=== PATIENT | male | born 2000 | race Caucasian/White ===

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

== ENCOUNTER 2019-05-15 10:52 | Emergency (ER) | payer BC, OTHER ==
[2019-05-15 11:07] VITALS: BP 149/92
--- NOTE | 2019-05-15 11:39 | UC ---
Skin Complaint HPI - HPI Summary HPI Summary: skin redness at the tattoo site x 2 days had a tattoo on his left forearm last week , now the area is red, swollen , tender, no drainage no fever, no chills - History of Current Complaint Chief Complaint: UCSkin Time Seen by Provider: 05/15/19 11:19 Stated Complaint: SKIN CONCERN Hx Obtained From: Patient Onset/Duration: Gradual Onset, Lasting Days - 2, Still Present Timing: Constant Onset Severity: Moderate Current Severity: Moderate Pain Intensity: 0 Pain Scale Used: 0-10 Numeric Location: Discrete - left forearm Character: Swelling, Pain, Redness, Raised, Painful Aggravating Factor(s): Nothing Alleviating Factor(s): Nothing Associated Signs & Symptoms: Positive: Tenderness. Negative: Nausea, Vomiting, Fever, Chills, Red Streaks - Allergy/Home Medications Allergies/Adverse Reactions: Allergies Allergy/AdvReac Type Severity Reaction Status Date / Time Penicillins Allergy Hives Verified 05/15/19 11:03 [place] Allergy Anaphylatic Verified 05/15/19 11:03 Shock PMH/Surg Hx/FS Hx/Imm Hx Previously Healthy: Yes - Surgical History Surgical History: Yes Surgery Procedure, Year, and Place: tongue-tie - Family History Known Family History: Negative: Diabetes - Social History Alcohol Use: None Substance Use Type: None Smoking Status (MU): Never Smoked Tobacco - Immunization History Most Recent Influenza Vaccination: no Most Recent Tetanus Shot: UTD Review of Systems All Other Systems Reviewed And Are Negative: Yes Constitutional: Negative: Fever, Chills Is Patient Immunocompromised?: No Physical Exam Triage Information Reviewed: Yes Appearance: Well-Appearing, No Pain Distress, Well-Nourished Vital Signs: Initial Vital Signs Temp 97 F 05/15/19 11:01 Pulse 88 05/15/19 11:01 Resp 16 05/15/19 11:01 BP 149/92 05/15/19 11:01 Pulse Ox 99 05/15/19 11:01 Vital Signs Reviewed: Yes Eye Exam: Normal Eyes: Positive: Conjunctiva Clear ENT: Positive: Normal ENT inspection, Hearing grossly normal, Pharynx normal Neck: Positive: Supple Respiratory: Positive: Chest non-tender, Lungs clear, Normal breath sounds Cardiovascular: Positive: RRR, No Murmur, Pulses Normal Skin: Positive: Other - tattoo site left forearm : + erythema, swelling , tender and warm to touch Course/Dx - Diagnoses Provider Diagnosis: Cellulitis of forearm, left Discharge ED - Sign-Out/Discharge Documenting (check all that apply): Patient Departure All imaging exams completed and their final reports reviewed: No Studies - Discharge Plan Condition: Stable Disposition: HOME Prescriptions: DOXYcycline CAP(*) [DOXYcycline 100MG CAP(*)] 100 mg PO BID #20 cap Mupirocin 2% OINT* [Bactroban 2 % Oint*] 1 applic TOPICAL BID #1 tube Patient Education Materials: Cellulitis (ED) Referrals: No Primary Care Phys,NOPCP [Primary Care Provider] - - Billing Disposition and Condition Condition: STABLE Disposition: Home
== END 2019-05-15 11:32 | disposition home or self-care (01) ==
LOC: UCCORT 10:52
DX: L03.114 Cellulitis of left upper limb (principal); L76.82 Other postprocedural complications of skin and subcutaneous tissue; Z88.0 Allergy status to penicillin; Z91.018 Allergy to other foods; Y83.8 Other surgical procedures as the cause of abnormal reaction of the patient, or of later complication, without mention of misadventure at the time of the procedure
CPT/HCPCS: 99212; G0463